=== PATIENT | female | born 1960 | race Caucasian/White ===

== ENCOUNTER → 2023-08-16 11:17 | Outpatient (REF) | payer OTHER, SELFPAY | LOC: WOUND 11:17 | PROVIDERS: ATTENDING PHYSICIAN Surgery; REFERRING PHYSICIAN Family Medicine | DX: I87.311 Chronic venous hypertension (idiopathic) with ulcer of right lower extremity (principal); L97.812 Non-pressure chronic ulcer of other part of right lower leg with fat layer exposed; I25.2 Old myocardial infarction; M79.7 Fibromyalgia; I25.10 Atherosclerotic heart disease of native coronary artery without angina pectoris; Z85.038 Personal history of other malignant neoplasm of large intestine; I87.2 Venous insufficiency (chronic) (peripheral); I73.9 Peripheral vascular disease, unspecified | CPT/HCPCS: 11042; 99212 ==

== ENCOUNTER → 2023-09-06 12:06 | Outpatient (REF) | payer OTHER, SELFPAY | LOC: WOUND 12:06 | PROVIDERS: ATTENDING PHYSICIAN Surgery Plastic and Reconstructive Surgery; REFERRING PHYSICIAN Family Medicine | DX: I87.311 Chronic venous hypertension (idiopathic) with ulcer of right lower extremity (principal); L97.812 Non-pressure chronic ulcer of other part of right lower leg with fat layer exposed; I25.2 Old myocardial infarction; M79.7 Fibromyalgia; I25.10 Atherosclerotic heart disease of native coronary artery without angina pectoris; Z85.038 Personal history of other malignant neoplasm of large intestine; I87.2 Venous insufficiency (chronic) (peripheral); I73.9 Peripheral vascular disease, unspecified | CPT/HCPCS: 11042; 29580; 99214 ==

== ENCOUNTER → 2023-09-13 14:43 | Outpatient (REF) | payer OTHER, SELFPAY | LOC: WOUND 14:43 | PROVIDERS: ATTENDING PHYSICIAN Surgery Plastic and Reconstructive Surgery; REFERRING PHYSICIAN Family Medicine | DX: I87.311 Chronic venous hypertension (idiopathic) with ulcer of right lower extremity (principal); L97.812 Non-pressure chronic ulcer of other part of right lower leg with fat layer exposed; I25.2 Old myocardial infarction; M79.7 Fibromyalgia; I25.10 Atherosclerotic heart disease of native coronary artery without angina pectoris; I87.2 Venous insufficiency (chronic) (peripheral); I73.9 Peripheral vascular disease, unspecified; Z85.038 Personal history of other malignant neoplasm of large intestine | CPT/HCPCS: 97597; 99214 ==

== ENCOUNTER → 2023-10-13 11:24 | Outpatient (REF) | payer OTHER, SELFPAY | LOC: WOUND 11:24 | PROVIDERS: ATTENDING PHYSICIAN Surgery; REFERRING PHYSICIAN Family Medicine | DX: I87.311 Chronic venous hypertension (idiopathic) with ulcer of right lower extremity (principal); L97.812 Non-pressure chronic ulcer of other part of right lower leg with fat layer exposed; I87.2 Venous insufficiency (chronic) (peripheral); I73.9 Peripheral vascular disease, unspecified | CPT/HCPCS: 97597 ==

== ENCOUNTER → 2023-11-03 11:54 | Outpatient (REF) | payer OTHER, SELFPAY | LOC: WOUND 11:54 | PROVIDERS: ATTENDING PHYSICIAN Surgery; REFERRING PHYSICIAN Family Medicine | DX: I87.311 Chronic venous hypertension (idiopathic) with ulcer of right lower extremity (principal); L97.812 Non-pressure chronic ulcer of other part of right lower leg with fat layer exposed; I25.2 Old myocardial infarction; M79.7 Fibromyalgia; I25.10 Atherosclerotic heart disease of native coronary artery without angina pectoris; Z85.038 Personal history of other malignant neoplasm of large intestine; I87.2 Venous insufficiency (chronic) (peripheral); I73.9 Peripheral vascular disease, unspecified | CPT/HCPCS: 99212 ==

== ENCOUNTER → 2023-11-24 09:06 | Outpatient (REF) | payer OTHER, SELFPAY | LOC: WOUND 09:06 | PROVIDERS: ATTENDING PHYSICIAN Surgery; FAMILY PHYSICIAN Family Medicine | DX: I87.311 Chronic venous hypertension (idiopathic) with ulcer of right lower extremity (principal); L97.812 Non-pressure chronic ulcer of other part of right lower leg with fat layer exposed; I25.2 Old myocardial infarction; M79.7 Fibromyalgia; I25.10 Atherosclerotic heart disease of native coronary artery without angina pectoris; Z85.038 Personal history of other malignant neoplasm of large intestine; I87.2 Venous insufficiency (chronic) (peripheral); I73.9 Peripheral vascular disease, unspecified | CPT/HCPCS: 99212 ==

== ENCOUNTER → 2023-12-08 13:11 | Outpatient (REF) | payer OTHER, SELFPAY | LOC: WOUND 13:11 | PROVIDERS: ATTENDING PHYSICIAN Surgery; FAMILY PHYSICIAN Family Medicine | DX: I87.311 Chronic venous hypertension (idiopathic) with ulcer of right lower extremity (principal); L97.812 Non-pressure chronic ulcer of other part of right lower leg with fat layer exposed; I25.2 Old myocardial infarction; M79.7 Fibromyalgia; I25.10 Atherosclerotic heart disease of native coronary artery without angina pectoris; Z85.038 Personal history of other malignant neoplasm of large intestine; I87.2 Venous insufficiency (chronic) (peripheral); I73.9 Peripheral vascular disease, unspecified; E03.9 Hypothyroidism, unspecified | CPT/HCPCS: 11042; 97597 ==

== ENCOUNTER → 2023-12-22 12:58 | Outpatient (REF) | payer OTHER, SELFPAY | LOC: WOUND 12:58 | PROVIDERS: ATTENDING PHYSICIAN Surgery; FAMILY PHYSICIAN Family Medicine | DX: I87.311 Chronic venous hypertension (idiopathic) with ulcer of right lower extremity (principal); L97.812 Non-pressure chronic ulcer of other part of right lower leg with fat layer exposed; I25.2 Old myocardial infarction; M79.7 Fibromyalgia; I25.10 Atherosclerotic heart disease of native coronary artery without angina pectoris; I87.2 Venous insufficiency (chronic) (peripheral); I73.9 Peripheral vascular disease, unspecified; E03.9 Hypothyroidism, unspecified; Z85.038 Personal history of other malignant neoplasm of large intestine | CPT/HCPCS: 11042 ==

== ENCOUNTER → 2024-01-12 13:18 | Outpatient (REF) | payer OTHER, SELFPAY | LOC: WOUND 13:18 | PROVIDERS: ATTENDING PHYSICIAN Surgery; FAMILY PHYSICIAN Family Medicine | DX: I87.311 Chronic venous hypertension (idiopathic) with ulcer of right lower extremity (principal); L97.812 Non-pressure chronic ulcer of other part of right lower leg with fat layer exposed; I25.2 Old myocardial infarction; M79.7 Fibromyalgia; I25.10 Atherosclerotic heart disease of native coronary artery without angina pectoris; Z85.038 Personal history of other malignant neoplasm of large intestine; I87.2 Venous insufficiency (chronic) (peripheral); I73.9 Peripheral vascular disease, unspecified; E03.9 Hypothyroidism, unspecified | CPT/HCPCS: 11042 ==

== ENCOUNTER → 2024-01-19 13:27 | Outpatient (REF) | payer OTHER, SELFPAY | LOC: WOUND 13:27 | PROVIDERS: ATTENDING PHYSICIAN Surgery; FAMILY PHYSICIAN Family Medicine | DX: I87.311 Chronic venous hypertension (idiopathic) with ulcer of right lower extremity (principal); L97.812 Non-pressure chronic ulcer of other part of right lower leg with fat layer exposed; I25.2 Old myocardial infarction; M79.7 Fibromyalgia; I25.10 Atherosclerotic heart disease of native coronary artery without angina pectoris; I87.2 Venous insufficiency (chronic) (peripheral); I73.9 Peripheral vascular disease, unspecified; E03.9 Hypothyroidism, unspecified; Z85.038 Personal history of other malignant neoplasm of large intestine | CPT/HCPCS: 11042 ==

== ENCOUNTER → 2024-01-26 10:56 | Outpatient (REF) | payer OTHER, SELFPAY | LOC: WOUND 10:56 | PROVIDERS: ATTENDING PHYSICIAN Surgery; FAMILY PHYSICIAN Family Medicine | DX: I87.311 Chronic venous hypertension (idiopathic) with ulcer of right lower extremity (principal); L97.812 Non-pressure chronic ulcer of other part of right lower leg with fat layer exposed; I25.2 Old myocardial infarction; M79.7 Fibromyalgia; I25.10 Atherosclerotic heart disease of native coronary artery without angina pectoris; I87.2 Venous insufficiency (chronic) (peripheral); I73.9 Peripheral vascular disease, unspecified; E03.9 Hypothyroidism, unspecified; Z85.038 Personal history of other malignant neoplasm of large intestine | CPT/HCPCS: 11042 ==

== ENCOUNTER → 2024-02-07 11:31 | Outpatient (REF) | payer OTHER, SELFPAY | LOC: WOUND 11:31 | PROVIDERS: ATTENDING PHYSICIAN Surgery; FAMILY PHYSICIAN Family Medicine | DX: I87.311 Chronic venous hypertension (idiopathic) with ulcer of right lower extremity (principal); L97.812 Non-pressure chronic ulcer of other part of right lower leg with fat layer exposed; I25.2 Old myocardial infarction; M79.7 Fibromyalgia; I25.10 Atherosclerotic heart disease of native coronary artery without angina pectoris; I87.2 Venous insufficiency (chronic) (peripheral); I73.9 Peripheral vascular disease, unspecified; E03.9 Hypothyroidism, unspecified; Z85.038 Personal history of other malignant neoplasm of large intestine | CPT/HCPCS: 11042 ==

== ENCOUNTER → 2024-02-28 15:05 | Outpatient (REF) | payer MEDICARE, OTHER, SELFPAY | LOC: WOUND 15:05 | PROVIDERS: ATTENDING PHYSICIAN Surgery; FAMILY PHYSICIAN Family Medicine | DX: I87.311 Chronic venous hypertension (idiopathic) with ulcer of right lower extremity (principal); L97.812 Non-pressure chronic ulcer of other part of right lower leg with fat layer exposed; I25.2 Old myocardial infarction; M79.7 Fibromyalgia; I25.10 Atherosclerotic heart disease of native coronary artery without angina pectoris; I87.2 Venous insufficiency (chronic) (peripheral); I73.9 Peripheral vascular disease, unspecified; E03.9 Hypothyroidism, unspecified; Z85.038 Personal history of other malignant neoplasm of large intestine | CPT/HCPCS: 99213 ==

== ENCOUNTER → 2024-03-13 11:16 | Outpatient (REF) | payer MEDICARE, OTHER, SELFPAY | LOC: WOUND 11:16 | PROVIDERS: ATTENDING PHYSICIAN Surgery; FAMILY PHYSICIAN Family Medicine | DX: I87.311 Chronic venous hypertension (idiopathic) with ulcer of right lower extremity (principal); L97.812 Non-pressure chronic ulcer of other part of right lower leg with fat layer exposed; I25.2 Old myocardial infarction; M79.7 Fibromyalgia; I25.10 Atherosclerotic heart disease of native coronary artery without angina pectoris; I87.2 Venous insufficiency (chronic) (peripheral); I73.9 Peripheral vascular disease, unspecified; E03.9 Hypothyroidism, unspecified; Z85.038 Personal history of other malignant neoplasm of large intestine | CPT/HCPCS: 99213 ==

== ENCOUNTER → 2024-03-27 10:36 | Outpatient (REF) | payer MEDICARE, OTHER, SELFPAY | LOC: WOUND 10:36 | PROVIDERS: ATTENDING PHYSICIAN Surgery; FAMILY PHYSICIAN Family Medicine | DX: I87.311 Chronic venous hypertension (idiopathic) with ulcer of right lower extremity (principal); L97.812 Non-pressure chronic ulcer of other part of right lower leg with fat layer exposed; I25.2 Old myocardial infarction; M79.7 Fibromyalgia; I25.10 Atherosclerotic heart disease of native coronary artery without angina pectoris; I87.2 Venous insufficiency (chronic) (peripheral); I73.9 Peripheral vascular disease, unspecified; E03.9 Hypothyroidism, unspecified; Z85.038 Personal history of other malignant neoplasm of large intestine | CPT/HCPCS: 99213 ==

== ENCOUNTER → 2024-04-10 11:05 | Outpatient (REF) | payer MEDICARE, SELFPAY | LOC: WOUND 11:05 | PROVIDERS: ATTENDING PHYSICIAN Surgery; FAMILY PHYSICIAN Family Medicine | DX: I87.311 Chronic venous hypertension (idiopathic) with ulcer of right lower extremity (principal); L97.812 Non-pressure chronic ulcer of other part of right lower leg with fat layer exposed | CPT/HCPCS: 99212 ==

== ENCOUNTER → 2024-05-01 11:16 | Outpatient (REF) | payer MEDICARE, SELFPAY | LOC: WOUND 11:16 | PROVIDERS: ATTENDING PHYSICIAN Surgery; FAMILY PHYSICIAN Family Medicine | DX: I87.311 Chronic venous hypertension (idiopathic) with ulcer of right lower extremity (principal); L97.812 Non-pressure chronic ulcer of other part of right lower leg with fat layer exposed; I25.2 Old myocardial infarction; M79.7 Fibromyalgia; I25.10 Atherosclerotic heart disease of native coronary artery without angina pectoris; I87.2 Venous insufficiency (chronic) (peripheral); I73.9 Peripheral vascular disease, unspecified; E03.9 Hypothyroidism, unspecified; Z85.038 Personal history of other malignant neoplasm of large intestine | CPT/HCPCS: 99212 ==

== ENCOUNTER → 2024-10-30 12:59 | Outpatient (REF) | payer OTHER, SELFPAY | LOC: WDC 12:59 | PROVIDERS: ATTENDING PHYSICIAN Family Medicine | DX: Z12.31 Encounter for screening mammogram for malignant neoplasm of breast (principal) | CPT/HCPCS: 77063; 77067 ==

== ENCOUNTER → 2024-12-04 13:03 | Outpatient (REF) | payer OTHER, SELFPAY | LOC: HWRAD 13:03 | PROVIDERS: ATTENDING PHYSICIAN Internal Medicine; FAMILY PHYSICIAN Family Medicine | DX: M81.0 Age-related osteoporosis without current pathological fracture (principal) | CPT/HCPCS: 77080 ==

== ENCOUNTER 2024-12-29 13:10 | Emergency (ER) | payer OTHER, SELFPAY ==
[2024-12-29 13:18] VITALS: BP 134/71
[2024-12-29 14:44] VITALS: BP 131/62
[2024-12-29 15:04] VITALS: BMI 27.4
--- NOTE | 2024-12-29 15:45 | ED.GENMED ---
History of Present Illness
General
Chief Complaint: Skin Surface Trauma
Source: patient
Exam Limitations: none
Time Seen by Provider: 12/29/24 15:32
Nursing documentation reviewed up to this point in time: agreed with
History of Present Illness
History of Present Illness:
64-year-old female with past medical history of asthma, coronary artery disease, GERD, hypothyroidism who comes emergency department today with concerns of laceration to her right lower leg. Patient reports that 2 days ago, she was walking and went
to go open up a plastic drawer when the sharp end of the drawer cut her on the right side of her leg. Patient reports that she had bleeding at the time and covered up the wound with a bandage. Patient reports that she started to have some mild
redness surrounding the wound and some pain but denies any difficulty ambulating denies any fevers or chills denies any nausea or vomiting. Patient states that she is not recall when her last tetanus vaccination was. Patient denies any falls,
denies any head or neck trauma, denies any other injuries. Patient denies any paresthesias or loss of sensation in her right lower extremity. Patient states that she gets a full body rash with penicillin antibiotics. Patient denies any purulent
drainage from the wound.
Past History
Past History
ED Past Medical History: Asthma, CAD, Cancer (Colon), Fibromyalgia, HTN, ND, Hypothyroidism and Other ( RA, osteoporosis)
ED Past Surgical History: Bowel resection, Cardiac (Stent X 1) and Cholecystectomy
Social History
Tobacco: Former smoker
Alcohol: None
Drug: None
Personal: Single (Common law marrage been together for 30 years)
Living: other (With boyfriend)
Employment: Employed (. [email or web address])
Review of Systems
Review of Systems
All Other Systems: ROS reviewed and negative except as documented in HPI and ROS
Phy Exam
Physical Exam
Physical Exam:
General: Patient is well appearing and in no acute distress; non-toxic
Skin: Warm and dry, 5 cm laceration noted to right lower extremity with exposed subcutaneous tissue with small area of surrounding area
Head: Normocephalic, atraumatic
Eyes: Sclera non-icteric. EOMs intact. PERRLA.
Cardiac: Regular rate
Peripheral Vascular: 2+ dorsalis pedis and posterior tibial pulses bilaterally
Pulm: Normal respiratory effort
Musculoskeletal: No bony tenderness palpation of the right lower extremity, no palpable bony deformity
Neuro: CN II-XII intact, no focal neurologic deficits.
Psychiatric: Appropriate mood and affect.
Course
Orders/Labs/Results
Orders:
Orders
12/29/24 15:50
Doxycycline [Vibramycin] 100 mg PO NOW STA
Tetanus/Diphth/Acelpertussis [Adacel] 0.5 ml IM .ONCE ONE
Vital Signs
Initial and Last Documented VS:
Initial Vital Signs
Temp Pulse Resp BP Pulse Ox
98.4 F 83 16 134/71 98
12/29/24 13:18 12/29/24 13:18 12/29/24 13:18 12/29/24 13:18 12/29/24 13:18
Last Documented Vital Signs
Temp Pulse Resp BP Pulse Ox
97.7 F 69 16 143/68 95
12/29/24 16:16 12/29/24 16:16 12/29/24 16:16 12/29/24 16:16 12/29/24 16:16
MDM/Problems Addressed
Differential Diagnosis Includes:
Abrasion, laceration, neurovascular injury
MDM/Problems Addressed:
64-year-old female presents emergency department today with concerns of a laceration to the right lower leg. She not fall. She not endorse any other injuries. She endured this laceration around 2 days ago. She did start to develop some
surrounding erythema to the wound. As it has been 48 hours since injury, no indication for stitches at this time as this will increase risk of infection. Considering the small area of surrounding cellulitis, will start on doxycycline as patient is
allergic to penicillins. Wound care instructions discussed, patient placed in petroleum soaked gauze and referral given for wound care center.
*Pulse Oximetry
Patient hypoxic: no
*Critical Care Note
Total Time (30-74mins, 75-104mins- exclusive of procedures): Not Applicable
Data Reviewed
Review of Other/Old Records Reveals: Records (Reviewed discharge summary)
ED Attending Note
-
Portions of this chart may have been created with voice recognition software.� Occasional wrong word or��sound alike� substitutions may have occurred due to the inherent limitations of voice recognition software.
Discharge Plan
Departure
Patient Disposition: Home (Routine Discharge)
Date of Disposition: 12/29/24
Time of Disposition: 16:14
Patient with high blood pressure during this ER visit?: Yes
Condition: Good
Discharge Problem:
Laceration of right lower leg
Instructions: Wound Care (DC), [facility], BLOOD PRESSURE
Prescriptions:
New
doxycycline hyclate 100 mg capsule
100 mg PO BID 7 Days Qty: 14 0RF
No Action
Singulair 10 MG
10 mg PO DAILY PRN (Reason: SOB)
Patient Comments:
sts uses 'seasonally'
atorvastatin 40 MG tablet
40 mg PO QPM Qty: 30 11RF
aspirin 81 MG tablet,delayed release (DR/EC)
81 mg PO DAILY Qty: 0 0RF
metoprolol succinate 25 MG tablet extended release 24 hr
12.5 mg PO HS
albuterol sulfate 1 PUFF HFA aerosol inhaler
1 puff inhalation Q6 PRN (Reason: SOB)
Patient Comments:
'i haven't used that in awhile, my asthma's been maintained'
pediatric multivitamin 1 EACH tablet,chewable
1 ea PO DAILY
Advair HFA 1 PUFF HFA aerosol inhaler
1 puff inhalation BID
oxycodone 5 MG tablet
5 mg PO Q4HPRN PRN (Reason: moderate pain) Qty: 20 0RF
hydroxychloroquine [Plaquenil] 200 mg Tablet
400 mg PO HS
fluticasone propionate [Flonase Allergy Relief] 50 mcg/actuation [place],Suspension
1 spray INTRANASAL BID
gabapentin 600 mg Tablet
600 mg PO TID
Patient Comments:
8 AM, 2 PM, 9 PM
metronidazole 500 mg tablet
500 mg PO Q8H Qty: 36 0RF
levofloxacin 750 mg tablet
750 mg PO DAILY Qty: 12 0RF
High Potency Probiotic 112.5 billion cell Capsule
2 cap PO DAILY Qty: 30 0RF
Referrals:
Ajay Mendes MD [Family Provider] -
Activity Restrictions/Additional Instructions:
Please change dressing once daily. You can apply a petroleum soaked dressing followed by nonadherent pads and Kerlix wrap. Please changes once daily. You can clean the wound with mild soap and water at home, please not scrub the wound. Please
not apply alcohol or hydrogen peroxide to the wound.
Doxycycline has been sent to your pharmacy. You can take 1 tablet twice daily for 7 days to prevent infection. Should you notice that the redness is spreading up or down the leg, if you have fevers or chills, nausea or vomiting, or any inflamed
lymph nodes, you should return to emergency department right away. Otherwise, you can follow-up with your primary care provider and wound care.
PLEASE RETURN EMERGENCY DEPARTMENT SHOULD YOU DEVELOP PALLOR IN YOUR LOWER EXTREMITY, LOSS OF SENSATION, INABILITY TO AMBULATE, PURULENT DRAINAGE FROM YOUR WOUND, IR SIGNS OR SYMPTOMS WORRISOME DEEP
Interventions
Interventions:
*Risk Screen - Suicide Last Done: 12/29/24 13:18
*General Assessment Last Done: 12/29/24 14:36
*Neglect/Abuse Screening Last Done: 12/29/24 13:18
*ED- Fall Risk Assessment Last Done: 12/29/24 14:36
*ED COVID-19 Vaccine History Last Done: 12/29/24 14:38
*Nursing Disposition Last Done: 12/29/24 16:25
ED-Skin Assessment Last Done: 12/29/24 15:01
Discharge Date and Time
Discharge Date/Time: 12/29/24 16:26
Print Language: MACEDONIAN
[2024-12-29] MEDS: ADACEL 0.5 ML IM (16:13)
[2024-12-29] MEDS: VIBRAMYCIN 100 MG PO (16:13)
[2024-12-29 16:16] VITALS: BP 143/68
== END 2024-12-29 16:26 | disposition home or self-care (01) ==
LOC: EMR 13:10
PROVIDERS: EMERGENCY PHYSICIAN Student in an Organized Health Care Education/Training Program; FAMILY PHYSICIAN Family Medicine
DX: S81.811A Laceration without foreign body, right lower leg, initial encounter (principal); W45.8XXA Other foreign body or object entering through skin, initial encounter; J45.909 Unspecified asthma, uncomplicated; I25.10 Atherosclerotic heart disease of native coronary artery without angina pectoris; E03.9 Hypothyroidism, unspecified; I10 Essential (primary) hypertension; Z87.891 Personal history of nicotine dependence; Z88.0 Allergy status to penicillin; Z95.5 Presence of coronary angioplasty implant and graft; Z85.038 Personal history of other malignant neoplasm of large intestine; Z23 Encounter for immunization
CPT/HCPCS: 99283; 90471; 90715